=== PATIENT | male | born 1965 | race African-American/Black ===

== ENCOUNTER 2016-09-21 22:44 | Emergency (ER) | payer BC ==
[~2016-09-21] VITALS: Ht 180.3 cm; Wt 115.2 kg
[~2016-09-21 22:44] MED LIST: AMLODIPINE BESYL5 MG PO; CELEXA 20 MG TA20 MG PO; FISH OIL 1,0001 EAC5; FLEXERIL PO; LIPITOR 10 MG10 M1 PO; MOBIC15 MG PO; NORCO 5-325 TA1 EACH PO; NORFLEX100 MG PO; VITAMIN D400 UNI1
[2016-09-21 22:50] VITALS: BP 139/86
[2016-09-21] MEDS ORDERED: NORFLEX100 MG PO (23:32)
[2016-09-21] MEDS ORDERED: NAPROSYN500 MG PO (23:32)
== END 2016-09-21 23:44 | disposition home or self-care (01) ==
LOC: ER 22:44
DX: S39.012A Strain of muscle, fascia and tendon of lower back, initial encounter (principal); E78.00 Pure hypercholesterolemia, unspecified; I10 Essential (primary) hypertension; X58.XXXA Exposure to other specified factors, initial encounter; Y93.89 Activity, other specified; Y92.89 Other specified places as the place of occurrence of the external cause; Y99.9 Unspecified external cause status

== ENCOUNTER → 2017-12-23 | Outpatient (CLI) | payer BC ==
[~2017-12-23] VITALS: Ht 177.8 cm; Wt 115.7 kg
[~2017-12-23] MED LIST changes: +NAPROSYN500 MG PO; +PRAVACHOL20 MG PO
--- NOTE | ~2017-12-23 | HPC ---
[facility] [place] [address] PAIN MANAGEMENT CONSULTATION Name: SELINA STEVE Room #: REG [facility] M.R.#: [id number] Admission: 12/23/17 Attend Phys: Alejandrina Rivas MD Discharge: Date of : 65 Report #: [id number] THIS REPORT FOR: //name// CC: Alejandrina De La Cruz MD DATE OF SERVICE: 12/23/2017 FOLLOWUP COMPLAINT: The pain was a whole lot better after the last injection. Now, I have noticed that this worsened. The patient was doing relatively well. He had myofascial pain in his low back area. He underwent a trigger point injection in 07/2017, things went quite well. He remembered shoveling the ____ snow. After shoveling the snow, he noted some worsening of pain and discomfort. Pain has returned to the lower portion of his back. It involves the left and the right side. Left and right bending, lumbar extension and lumbar flexion all cause increased pain and discomfort in the low back area. He is not having pain that is radiating down to his legs, but has pain across the lower portion of his back. He continues to use Mobic 15 mg 1 p.o. p.r.n. Overall, pain was improved and has returned to a level, which he describes as 4/10. He would like to proceed with another treatment course. ALLERGIES: No known drug allergies. MEDICATIONS: Review of current mediations, Mobic 15 mg 1 p.o. daily, Pravachol 20 mg daily, amlodipine 5 mg. PAIN CLINIC ASSESSMENT: 1. Osteoarthritis. The patient is not being treated for osteoarthritis or rheumatoid arthritis. 2. Height 5 feet 10 inches, weight 255 pounds, BMI is 36. 3. VITAL SIGNS: Blood pressure 127/79, pulse 68, respiratory rate 14, room air saturation 96%. 4. Pain score 4/10. 5. Fall risk. The patient has not fallen in the last 3 months. 6. Blood thinner. The patient is not on a blood thinner. 7. History of hypertension. The patient is being treated for hypertension. 8. Opioid therapy greater than 6 weeks. The patient is not on opioid therapy. 9. Risk assessment tool. 10. Functional assessment tool. 11. Recreational drug use. Denies use of recreational drugs. 12. Tobacco: The patient has never smoked. 13. Alcohol. The patient denies use of alcoholic beverages. PHYSICAL EXAMINATION: GENERAL: The patient is a well-developed black male. He appears his stated [address] [address] PAIN MANAGEMENT CONSULTATION Name: SELINA STEVE Room #: REG [facility]#: [id number] Admission: 12/23/17 Attend Phys: Alejandrina Rivas MD Discharge: Date of : 65 Report #: [id number] age. ORIENTATION: The patient is alert and oriented x 3. AFFECT: The patient's affect is appropriate. Speech is smooth. HEENT: Normocephalic, atraumatic. Extraocular eye muscles intact. Hearing within normal limits. Sclerae are clear. Mucous membranes moist. NECK: Without adenopathy, JVD or bruits. CHEST: Clear to auscultation. HEART: Regular rate. ABDOMEN: Nontender. MUSCULOSKELETAL: Without significant scoliosis, kyphosis or lordosis. The patient has some pain and discomfort in the left and right perispinal area at L5-S1 zone. EXTREMITIES: Upper extremities are judged to be within normal limits with normal sensation. Rotary Adjuster strength 5/5, muscle strength 5/5. Lower extremities: The patient has pain and discomfort in the left posterior superior iliac spine on the left as well as on the right. Palpation in these areas reproduced the pain and discomfort, which he has been experiencing. Muscle strength is judged to be 5/5 without sensory changes in the lower extremity. IMPRESSION: 1. Myofascial pain, low back area, similar to that which he experienced in July, which improved after trigger point injection. 2. Hypertension. 3. No new laboratory values were available at the time of interview. RECOMMENDATIONS: We discussed the treatment options. The patient had trigger point injections in 07/2017. He found that the pain pretty much took care of this. He noted some worsening of his pain over the few weeks. He recalled shoveling the snow. After the shoveling the snow, he noted some worsening of his pain, which has continued to be old since that point. He feels that the pain is disruptive to his life. States that it sometimes causes difficulty with sleep. The patient would like to proceed with another injection of the affected areas which were successful at the last point. PROCEDURE NOTE: The patient was placed in the sitting position. His back was sterilely prepped with a chlorhexidine solution. The right posterior superior iliac spine area where the gluteus prasanna and latissimus dorsi met was palpated. This causes some reproduction of pain and discomfort. A 25-gauge needle was then advanced into the area. This reproduced his pain and localized a trigger point. A total of 9 mL of 0.5% bupivacaine and 80 mg Depo-Medrol was injected. The contralateral side was treated in a like manner. A 25-gauge needle was then advanced into the area. A total of 9 mL of 0.5% bupivacaine and 80 mg Depo-Medrol was injected. The patient tolerated the procedure well. He remained in the pain clinic for an appropriate amount of time. He will follow [facility] [address] [address] PAIN MANAGEMENT CONSULTATION Name: SELINA STEVE Room #: REG [facility].#: [id number] Admission: 12/23/17 Attend Phys: Alejandrina Rivas MD Discharge: Date of : 65 Report #: [id number] up in the future as needed. We would like to thank you for letting us participate in his care. We hope he continues to improve. By: 1452 [id number] Alejandrina Rivas MD /nt
[2017-12-23 08:49] VITALS: BP 129/79
== END | disposition home or self-care (01) ==
LOC: PAIN 06:45
DX: M79.1 Myalgia (principal); I10 Essential (primary) hypertension; Z68.36 Body mass index [BMI] 36.0-36.9, adult; M19.90 Unspecified osteoarthritis, unspecified site; Z79.899 Other long term (current) drug therapy

== ENCOUNTER 2019-02-16 20:26 | Emergency (ER) | payer BC ==
[~2019-02-16] VITALS: Ht 182.9 cm; Wt 116.1 kg
[~2019-02-16 20:26] MED LIST changes: +AMLODIPINE BESY10 MG PO; -AMLODIPINE BESYL5 MG PO
[2019-02-16 20:28] VITALS: BP 171/119
[2019-02-16] MEDS ORDERED: IBUPROFEN 600600 M1 PO (21:06)
[2019-02-16] MEDS ORDERED: NORCO 5-325 TA1 EACH PO (21:06)
== END 2019-02-16 21:18 | disposition home or self-care (01) ==
LOC: ER 20:26
DX: S67.01XA Crushing injury of right thumb, initial encounter (principal); I10 Essential (primary) hypertension; W23.1XXA Caught, crushed, jammed, or pinched between stationary objects, initial encounter; Y92.89 Other specified places as the place of occurrence of the external cause; Y99.0 Civilian activity done for income or pay; Y99.8 Other external cause status

== ENCOUNTER 2019-04-04 23:18 | Emergency (ER) | payer BC ==
[~2019-04-04] VITALS: Ht 180.3 cm; Wt 120.7 kg
[~2019-04-04 23:18] MED LIST changes: +IBUPROFEN 600600 M1 PO
[2019-04-05] MEDS ORDERED: NAPROSYN500 MG PO (00:28)
[2019-04-05] MEDS ORDERED: MEDROLDOSEPACK PO (00:28)
[2019-04-05] MEDS ORDERED: SENNA-DOCUSATE1 EAC1 PO (00:28)
[2019-04-05] MEDS ORDERED: NORFLEX100 MG PO (00:28)
[2019-04-05] MEDS ORDERED: NORCO 7.5-3251 EACH PO (00:28)
[2019-04-05 03:05] VITALS: BP 136/71
== END 2019-04-05 01:00 | disposition home or self-care (01) ==
LOC: ER 23:18
DX: M54.40 Lumbago with sciatica, unspecified side (principal); I10 Essential (primary) hypertension

== ENCOUNTER 2020-03-17 07:54 | Inpatient (IN) | payer BC ==
[~2020-03-17] VITALS: Ht 182.9 cm; Wt 123.8 kg
[~2020-03-17 07:54] MED LIST changes: +IBUPROFEN200 M1 PO; +MEDROLDOSEPACK PO; +MULTIVITAMINS1 EAC7 PO; +NORCO 7.5-3251 EACH PO; +PRAVACHOL40 MG PO; +SENNA-DOCUSATE1 EAC1 PO; +TYLENOL EXTRA500 MG PO
[2020-03-17 08:49] VITALS: BP 141/97
--- NOTE | 2020-03-17 15:27 | NUR ---
ADMITTED TO THE UNIT AT 1430. ADMISSION HX AND ASSESSMENT COMPLETED. CARE PLAN ACTIVATED. PT IS IS A/O X4. C/O PAIN TO RIGHT KNEE. PRN PAIN MEDICATION GIVEN DIRECTED. SURGERY DRESSING IS DRY AND INTACT WITH NO DRAINAGE. FALL PRECAUTIONS ARE IN PLACE, CALL LIGHT IS WITHIN REACH. PT EDUCATED ON HOW TO CALL FOR HELP. ICE PACK FILLED AND REAPPLIED TO RIGHT KNEE. PT IS CURRENTLY IN HIS BED VISITIN WITH . WILL REPORT TO NURSE
[2020-03-17 15:50] VITALS: BP 133/85
[2020-03-17 17:32] VITALS: BP 111/72
--- NOTE | 2020-03-17 18:07 | NUR ---
Assumed care of patient at 1430. Patient is drowsy but AOX3. Pt. states pain around R. knee and requested medication. O2 sat. was low while on 2L of oxygen nasal canula and was increased to 4L. O2 sat returned to healthy level and pain was relieved via medication. Pt. is aware of mobility limitations. Fall precautions in place.
[2020-03-17 19:25] VITALS: BP 140/78
--- NOTE | 2020-03-17 19:39 | NUR ---
ASSUMED PT CARE AT 1600.PT DENIED PAIN AT THE TIME.HEMOVAC EMPTIED HAD 400CC.URINAL AT BEDSIDE.PT GOT FIRST DOSE OF PROPHYLACTIC ABX.PT'S AT BEDSIDE.DRSG TO R KNEE C/D/I,ICE PACK TO KNEE.PT ON 3L/NC,APNEA MONITOR INPLACE.PT RESTING ON HIS BED AT THIS TIME,FALL PRECAUTIONS IN PLACE,CALL LIGHT WITHIN REACH.
--- NOTE | 2020-03-18 02:54 | NUR ---
ASSUMED PT CARE AT 2300. PT A&OX4. LARGE OUTPUT FROM HEMOVAC, DOCUMENTED IN I&O. ANTIBIOTICS AND FLUIDS INFUSING PER ORDER. WEANED OFF THE O2 OVERNIGHT, PT TOLERATED WELL. USES URINAL AT BEDSIDE. REPORTS MINIMAL PAIN WITH REST. NO COMPLAINTS AT THIS TIME.
[2020-03-18 04:45] VITALS: BP 139/74
[2020-03-18 05:58] LABS: ABSOLUTE NEUTROPHILS 12.9 thou/uL (1.4-8.2); BASOPHILS 0.4 % (0.0-2.0); HEMATOCRIT 38.2 % (42.0-52.0); HEMOGLOBIN 12.4 gm/dL (14.0-18.0); LYMPHOCYTES 7.1 % (24.0-44.0); MCH 28.5 pg (26.0-34.0); MCHC 32.4 g/dL (28.0-37.0); MCV 87.9 fL (80.0-100.0); MONOCYTES 5.4 % (1.0-8.0); PLATELET COUNT 258 thou/uL (150-400); POLYS 87.1 % (36.0-66.0); RBC 4.35 mil/uL (4.50-6.00); WBC 14.9 thou/uL (4.0-11.0)
[2020-03-18 06:12] LABS: CALCIUM 8.4 mg/dL (8.5-10.1); POTASSIUM 4.7 mmol/L (3.5-5.1)
[2020-03-18 07:30] VITALS: BP 135/91
--- NOTE | 2020-03-18 07:46 | O ---
[facility] [place] [place] [address] OPERATIVE REPORT Name: SELINA STEVE Room #: 434-P ADM IN M.R.#: [id number] Admission: 03/17/20 Attend Phys: Kb Monae MD Discharge: Date of : 65 Report #: [id number] THIS REPORT FOR: cc: Willy De La Cruz,Kb Holt MD ~ CC: Kb De La Cruz DATE OF SERVICE: 03/17/2020 PREOPERATIVE DIAGNOSIS: End-stage degenerative arthritis, right knee with varus malalignment. POSTOPERATIVE DIAGNOSIS: End-stage degenerative arthritis, right knee with varus malalignment. PROCEDURE: Right total knee arthroplasty. SURGEON: Kb Monae MD INDICATIONS: This healthy, active, but slightly heavy 54-year-old gentleman has progressive right knee pain. Clinical exam and x-rays confirm moderate degenerative change with varus malalignment and medial compartment narrowing and spurring. He has tried conservative measures without benefit and has decided now to go ahead with total knee replacement. DESCRIPTION OF PROCEDURE: The patient was taken to the operating room where he was placed under general anesthesia. A femoral nerve block was also applied. The right lower extremity was meticulously prepped and draped. Prophylactic intravenous antibiotics were administered. A thigh tourniquet was applied and inflated to 350 mmHg. An anterior longitudinal skin incision was made and carried along the medial retinaculum. The patella was reflected laterally. Marked degenerative change in all 3 compartments was noted. The Blanco and Nephew knee system was utilized. Intramedullary guides were used on both the femur and the tibia. The femur was cut in 5 degrees of valgus. The tibia was cut perpendicular to long axis of the bone, correcting the moderate preoperative varus malalignment. The femur was best suited for a size 7 femoral component. The tibia also same sized best suited for a size 7 tibial component. The patellar surface was resected and a 35 mm patellar button fit appropriately. Trial reduction was performed and a 10 mm polyethylene insert resulted in satisfactory alignment, range of motion and stability. The trial components were removed. The intramedullary canal was blocked with a bone block on both the femoral and tibial sides. The surfaces were thoroughly irrigated and dried. Methylmethacrylate cement was mixed and injected into the porous surface of the proximal tibia. The permanent Blanco and Nephew size 7 Alesia II right tibial [address] [address] OPERATIVE REPORT Name: EVISELINA Room #: 434-P [facility] IN M.R.#: [id number] Admission: 03/17/20 Attend Phys: Kb Monae MD Discharge: Date of : 65 Report #: [id number] base plate was selected. This was impacted into the tibia using cement for fixation. Excess cement was removed from around its margin. A 10 mm polyethylene insert was then inserted and snapped into place. It seated nicely and appeared to be secure. A size 7 right Legion cruciate retaining femoral component was then impacted on to the distal femur. It seated nicely and appeared to be secure. A 35 mm patellar button was cemented into place and secured with a patellar clamp until the cement had hardened. Once the cement was firm, range of motion, alignment and stability were once again assessed and felt to be satisfactory. A single Hemovac was left in the wound exiting through a separate stab incision. The fascia was closed with multiple #1 Vicryl sutures. The tourniquet was deflated after a total tourniquet time of 65 minutes. The subcutaneous tissues were closed with 0 Vicryl. The skin was closed with skin babita. A sterile dressing was applied. The patient was awakened and returned to recovery room in good condition. <ELECTRONICALLY SIGNED> By: Kb Monae MD 03/18/20 0746 1150 1243 Kb Monae MD /nt
--- NOTE | 2020-03-18 08:48 | NUR ---
ASSESSMENT: CM REVIEWED CHART AND SPOKE WITH PATIENT. PT IS ALERT AND ORIENTED X4. PT REPORTS HE LIVES IN A HOUSE WITH HIS . PT REPORTS HAVING ONE STEP TO ENTER AND REPORTS HIS BEDROOM IS ON THE MAIN LEVEL. PT REPORTS HE DOES HAVE STEPS TO THE BASEMENT ABOUT 12 WHERE THE WASHER AND DRYER IS BUT STATES HIS CAN DO THAT FOR NOW. PT REPORTS HE AMBULATES INDEPENEDNTLY AND DOES NOT HAVE ANY DME OR HAS NOT HAD THE NEED FOR IT. PT REPORTS BEING INDEPENDENT WITH ADLS. PT REPORTS HE HAS NOT HAD HH IN THE PAST NOR BEEN TO A SNF. PT IS GOING TO WORK WITH PATIENT THIS AM. CM WILL REVIEW IF PATIENT WILL NEED ANY DME PRIOR TO POSSIBLE DISCHARGE THIS EVENING. PT REPORTS IF HE NEEDS A CANE OR WALKER HE HAS NO PREFERENCE OF DME COMPANY. CM WILL CONTINUE TO FOLLOW TO ASSIST NEEDED.
--- NOTE | 2020-03-18 10:47 | NUR ---
PATIENT RESTING IN BED AT BEDSIDE. PT TOOK AM MEDS INCLUDING PRN PAIN MED. DRAIN PULLED TO RIGHT KNEE SURGICAL SITE HAD 60CC OF BLOOD.PT IS CONT OF B&B AND IS PLEASANT AND COOPERATIVEE WITH CARE.
--- OUTSIDE RECORDS SUMMARY | 2020-03-18 15:06 | XMS REPORT | Summary of Care ---
Demographics + + + | Address | [address] | | | [place] [address] | + + + | Home Phone | | + + + | Preferred Language | Unknown | + + + | Marital Status | | + + + | Anglican Affiliation | Unknown | + + + | Race | Black or | + + + | Ethnic Group | Not or | + + + Author + + + | Author | [facility] | + + + | Organization | [facility] | + + + | Address | Unknown | + + + | Phone | Unavailable | + + + Support + + +---------+ + | Name | Relationship | Address | Phone | + + +---------+ + | Larissa Garciaon | ECON | Unknown | | + + +---------+ + Care Team Providers + +------+ + | Care Party Plan Selling Distributor Name | Role | Phone | + +------+ + | Willy De La Cruz DO | PCP | | + +------+ + Encounter Details +------+---------+ + + + | Date | Type | Department | Care Team | Description | +------+---------+ + + + | 06/3 | Letter | [facility] | Dorothy, | | | 0/20 | (Out) | [facility] | DO [address] | | 20 | | [address] | [address] | | | | | [address] | [address] | | | | | [address] | [place], [place] | | | | | [place] [address] | [address] | | | | | [phone] | [phone] | | | | | | [phone] | | | | | | (Fax) | | +------+---------+ + + + Allergies No Known Allergiesdocumented as of this encounter (statuses as of 03/18/2020) Medications + + +---------+--------+-----+-----+------+ | Medication | Sig | Dispens | Refill | Sta | End | Stat | | | | ed | s | rt | | us | | | | | | Sanju | Sanju | | | | | | | e | e | | + + +---------+--------+-----+-----+------+ | hydrocortisone | APPLY RECTALLY 2 | 56.7 | 1 | 06/ | | Acti | | 2.5 % cream | TIMES DAILY | g | | 13/ | | ve | | | NEEDED | | | 201 | | | | | | | | 8 | | | + + +---------+--------+-----+-----+------+ | amLODIPine | Take 1 tablet | 90 | 1 | 01/ | 07/ | Acti | | (NORVASC) 10 MG | (10 mg total) by | tablet | | 11/ | 09/ | ve | | tabletIndication | mouth daily for | | | 202 | 202 | | | s: Hypertension, | 180 days | | | 0 | 0 | | | benign | | | | | | | + + +---------+--------+-----+-----+------+ | pravastatin | Take 1 tablet | 90 | 1 | 06/ | | Acti | | (PRAVACHOL) 40 | (40 mg total) by | tablet | | 19/ | | ve | | MG | mouth daily | | | 202 | | | | tabletIndication | | | | 0 | | | | s: | | | | | | | | Hypercholesterem | | | | | | | | ia | | | | | | | + + +---------+--------+-----+-----+------+ documented as of this encounter (statuses as of 03/18/2020) Active Problems + + + | Problem | Noted Date | + + + | Primary osteoarthritis of right knee | 03/03/2020 | + + + | Preoperative examination | 03/03/2020 | + + + | Pre-op chest exam | 03/03/2020 | + + + | BMI 39.0-39.9,adult | 03/08/2019 | + + + | Erectile dysfunction | 03/08/2019 | + + + | Prostate cancer screening | 03/08/2019 | + + + | Screening for colon cancer | 03/08/2019 | + + + | Proteinuria | 01/07/2018 | + + + | Hypercholesterolemia | 05/21/2017 | + + + | Encounter for long-term (current) use of high-risk | 05/21/2017 | | medication | | + + + | Essential hypertension | 05/21/2017 | + + + | Fatigue | 05/21/2017 | + + + | Non morbid obesity due to excess calories | 05/21/2017 | + + + documented as of this encounter (statuses as of 03/18/2020) Resolved Problems + +--------+---------+ | Problem | Noted | Resolve | | | Date | d Date | + +--------+---------+ | Inflamed sebaceous cyst | 06/03/ | | | | 2018 | 020 | + +--------+---------+ documented as of this encounter (statuses as of 03/18/2020) Immunizations + + + + | Name | Administration Dates | Next Due | + + + + | DT | 09/19/2001 | | + + + + | Hepatitis A | 02/01/2014, 07/31/2013 | | + + + + | Hepatitis B | 02/01/2014, 08/27/2013, 07/31/2013 | | + + + + | Influenza (IM) | 07/27/2013 | | | Preservative | | | | Free | | | + + + + | Tdap | 01/25/2013 | | + + + + documented as of this encounter Social History + +-------+---------+--------+------+ | Tobacco Use | Types | Packs/D | Years | Date | | | | ay | Used | | + +-------+---------+--------+------+ | Never Smoker | | | | | + +-------+---------+--------+------+ + +---+---+---+ | Smokeless | | | | | Tobacco: Never | | | | | Used | | | | + +---+---+---+ + + +---------+ + | Alcohol Use | Drinks/Week | oz/Week | Comments | + + +---------+ + | Yes | | | 1-2 times per | | | | | month | + + +---------+ + + + + | Sex Assigned at | Date Recorded | | | | + + + | Not on file | | + + + + + + + | Job Start Date | Occupation | Industry | + + + + | Not on file | Not on file | Not on file | + + + + + + + + | Travel History | Travel Start | Travel End | + + + + + + | No recent travel history | | available. | + + documented as of this encounter Last Filed Vital Signs Not on filedocumented in this encounter Plan of Treatment + +---------+ + + | Health | Due | Last Done | Comments | | Maintenance | Date | | | + +---------+ + + | COLONOSCOPY | | | | | | 965 | | | + +---------+ + + | INFLUENZA | | 07/27/2013 | | | VACCINE | 020 | | | + +---------+ + + documented as of this encounter Results Not on filedocumented in this encounter Insurance + +------+ +------+-------+---------+------+ | Payer | Bene | Subscrib | Effe | Phone | Address | Type | | | fit | er ID | ctiv | | | | | | Plan | | e | | | | | | / | | Date | | | | | | Grou | | s | | | | | | p | | | | | | + +------+ +------+-------+---------+------+ | [employer] [place] | [employer] | [id number] | 1// | | | | | | | xxxx | 2016 | | | | | | [place] | | -Pre | | | | | | | | sent | | | | | | [place] | | | | | | + +------+ +------+-------+---------+------+ documented as of this encounter"
[2020-03-18 16:00] VITALS: BP 157/84
[2020-03-18 20:20] VITALS: BP 143/72
--- NOTE | 2020-03-19 04:51 | NUR ---
RECIEVED CARE OF THIS PATIENT AT 1900. PATIENT ALERT AND ORIENTED X4. PATIENT HAS MILAGRO DRESSING ON R KNEE. HAS KASSANDRA HOSE AND SCD'S ON BOTH LOWER EXT. ICE APPLIED TO INCISION SITE. DRESSING D/I. C/O PAIN, MED GIVEN. UP TO BATHROOM WITH ASSIST AND USES URINAL. SLEPT OFF AND ON DURING NIGHT.
[2020-03-19 06:20] LABS: HEMATOCRIT 35.3 % (42.0-52.0); HEMOGLOBIN 11.6 gm/dL (14.0-18.0); MCH 28.6 pg (26.0-34.0); MCHC 32.7 g/dL (28.0-37.0); MCV 87.5 fL (80.0-100.0); RBC 4.04 mil/uL (4.50-6.00)
--- NOTE | 2020-03-19 07:27 | NUR ---
ASSUMED CARE OF PATIENT AWOKE EASILY STATES NO PAIN HAS KASSANDRA HARRINGTON SCDS XS 2 ON. PICCO INTACT. WILL GIVE PRN PAIN BEFORE THERAPY.
[2020-03-19 09:07] VITALS: BP 153/84
[2020-03-19] MEDS ORDERED: XARELTO10 MG PO (13:33)
[2020-03-19] MEDS ORDERED: NORCO 10-325 T1 EACH PO (13:34)
[2020-03-19 15:08] VITALS: BP 153/84
--- NOTE | 2020-03-20 18:03 | D ---
[facility] [place] [address] [address] [address] DISCHARGE SUMMARY Name: SELINA STEVE Room #: 434-P [facility] IN M.R.#: [id number] Admission: 03/17/20 Attend Phys: Kb Monae MD Discharge: 03/19/20 Date of : 65 Report #: [id number] THIS REPORT FOR: cc: Willy De La Cruz,Kb Holt MD ~ THIS REPORT FOR: //name// CC: Kb De La Cruz DATE OF SERVICE: 03/19/2020 FINAL DIAGNOSIS: End-stage degenerative arthritis, right knee. OPERATIONS AND PROCEDURES: Right total knee arthroplasty. HISTORY OF PRESENT ILLNESS: This active, working independent 54-year-old gentleman complains of severe progressive right knee pain. He has had symptoms for quite some time, which have been unresponsive to conservative measures. He has elected to go ahead with total knee replacement. HOSPITAL COURSE: The patient was admitted and taken to the operating room on 03/17. He underwent right total knee replacement, which he tolerated well. Postoperatively, his course has been largely unremarkable. He has been started on Xarelto for prophylaxis and oral pain medication. He is participating with physical therapy and making satisfactory progress. He is still having quite a bit of knee discomfort and stiffness, but is anxious for hospital discharge pending his therapy session today. He may be ready for discharge home today or tomorrow morning. DISCHARGE MEDICATIONS: Include Xarelto 10 mg daily, hydrocodone 10 mg q. 4-6 hours p.r.n. for pain, amlodipine 10 mg daily, pravastatin 40 mg daily, multivitamins once daily, Tylenol p.r.n. for mild pain. He will continue moderate activity at home, full range of motion and strengthening involving the knee. He will continue a regular diet. He is instructed to call me should there be any problems or questions. I will plan to see him back in my office in 1 week for followup and 2 weeks for suture removal. <ELECTRONICALLY SIGNED> By: Kb Monae MD 03/20/20 1803 1339 1414 Kb Monae MD /nt
== END 2020-03-19 15:07 | disposition home or self-care (01) | DRG 470 ==
LOC: PRE 07:54 → TBA 07:54 → 4S 07:54 → PRE 08:37 → 4S 03-19 15:07
PROVIDERS: Nurse Practitioner; ADMIT Orthopaedic Surgery; ATTEND Orthopaedic Surgery
PROC: 3E0T3BZ Introduction of Anesthetic Agent into Peripheral Nerves and Plexi, Percutaneous Approach (ICD-10-PCS; principal; 2020-03-17)
PROC: 0SRC0J9 Replacement of Right Knee Joint with Synthetic Substitute, Cemented, Open Approach (ICD-10-PCS; principal; 2020-03-17)
DX: M17.11 Unilateral primary osteoarthritis, right knee (principal); M21.161 Varus deformity, not elsewhere classified, right knee; E78.5 Hyperlipidemia, unspecified; I10 Essential (primary) hypertension; Z79.01 Long term (current) use of anticoagulants; Z79.891 Long term (current) use of opiate analgesic; Z79.899 Other long term (current) drug therapy; Z03.818 Encounter for observation for suspected exposure to other biological agents ruled out
CPT/HCPCS: 10102; 50010; 50101; 50415; 50954; 51130; 51225; 51412; 53364; 56525; 57095; 57103; 57104; 57180; 62110; 62900; 70005

== ENCOUNTER → 2020-05-01 | Day surgery (SDC) | payer BC ==
[~2020-05-01] MED LIST changes: +NORCO 10-325 T1 EACH PO; +XARELTO10 MG PO
== END | disposition home or self-care (01) ==
LOC: LAB 07:31
PROVIDERS: ATTEND Student in an Organized Health Care Education/Training Program
DX: Z01.812 Encounter for preprocedural laboratory examination (principal); Z11.59 Encounter for screening for other viral diseases; M96.89 Other intraoperative and postprocedural complications and disorders of the musculoskeletal system; Z98.1 Arthrodesis status

== ENCOUNTER 2020-05-05 09:34 | Day surgery (SDC) | payer BC ==
[~2020-05-05] VITALS: Ht 182.9 cm; Wt 98.0 kg
[2020-05-05 10:30] VITALS: BP 133/74
--- NOTE | 2020-05-06 08:17 | O ---
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 PROCEDURE: Manipulation under anesthesia, right knee with lysis of adhesions for improvement in range of motion. SURGEON: Kb Monae MD INDICATIONS: This 54-year-old gentleman underwent right total knee arthroplasty about 7 weeks ago. He has generally done well, but has had problems regaining good range of motion. He is working with therapy, but with moderate discomfort. He has only advanced to about 80 or 85 degrees of knee flexion and does seem to have significant arthrofibrosis. His x-rays revealed no obvious problems with the components in terms of alignment. We have elected to go ahead with manipulation under anesthesia, hoping to improve his range of motion. DESCRIPTION OF PROCEDURE: The patient was taken to the operating room, where he was placed under regional block and additional IV sedation. The right knee was then gently manipulated. Initially, he seemed to stop at about 80 degrees of flexion with a gentle, but firm manipulation, I could sense significant lysis of adhesions and his range of motion gradually improved. Ultimately, I could achieve about 115-120 degrees of knee flexion and also achieve full knee extension, still the knee is puffy and he is a very large gentleman, making assessment difficult. I think there is significant postoperative arthrofibrosis, but I feel we clearly advanced his range of motion in a significant fashion. He tolerated this well. The patient was then awakened and returned to recovery room in good condition. He will continue with a vigorous outpatient therapy program and I believe has his next appointment for later today. I will explain to the patient and his that I expect he should be able to make good progress over the coming months if he worked hard with therapy. If he is not making sufficient progress, then I think our only option would be to return to the operating room and exchange the tibial polyethylene [address] [address] OPERATIVE REPORT Name: SELINA STEVE Room #: DEP [facility]#: [id number] Admission: 05/05/20 Attend Phys: Kb Monae MD Discharge: 05/05/20 Date of : 65 Report #: [id number] liner to a more narrow liner to allow increased range of motion. I will plan to see the patient back in my office in 1 or 2 weeks for followup. <ELECTRONICALLY SIGNED> By: Kb Monae MD 05/06/20 0817 1128 1231 Kb Monae MD /nt
== END 2020-05-05 12:35 | disposition home or self-care (01) ==
LOC: OR 09:34 → TBA 09:37 → OR 10:27
PROVIDERS: ATTEND Orthopaedic Surgery
DX: M24.661 Ankylosis, right knee (principal); M96.89 Other intraoperative and postprocedural complications and disorders of the musculoskeletal system; Z96.651 Presence of right artificial knee joint; I10 Essential (primary) hypertension; E78.00 Pure hypercholesterolemia, unspecified; Z98.890 Other specified postprocedural states; Z79.899 Other long term (current) drug therapy
CPT/HCPCS: 50010; 50101; 62110; 62900; 64043; 65060; 70005